=== PATIENT | male | born 1990 | race Caucasian/White ===

== ENCOUNTER → 2016-12-28 | Outpatient (CLI) | payer OTHER ==
[~2016-12-28] MED LIST: IBUP-103 PO; OXYC1TAB3 PO
[2016-12-28 17:36] LABS: BASO % 0.5 %; BASO ABS # 0.04 K/uL (0-0.2); COMPLETE YES; EOS % 1.5 %; HEMATOCRIT 46.3 % (42-52); IG% 0.1 %; LYMPH % 27.2 %; LYMPH ABS # 2.13 K/uL (1.2-3.4); MEAN CELL VOLUME 87.9 fL (80-100); MEAN CORPUSCULAR HEMOGLOBIN 30.9 pg (25-34); MEAN CORPUSCULAR HGB CONC 35.2 g/dl (32-36); MEAN PLATELET VOLUME 9.5 fL (7.4-10.4); MONO % 7.4 %; NEUT % 63.3 %; PLATELET COUNT 262 K/uL (130-400); RED BLOOD COUNT 5.27 M/uL (4.7-6.1); WHITE BLOOD COUNT 7.84 K/uL (4.8-10.8)
[2016-12-28 19:19] LABS: BLOOD UREA NITROGEN 14 mg/dl (7-18); BUN/CREATININE RATIO 17.4 (10-20); CARBON DIOXIDE 31 mmol/L (21-32); CHLORIDE 103 mmol/L (98-107); CREATININE 0.83 mg/dl (0.60-1.40); GLUCOSE 68 mg/dl (70-99); POTASSIUM 4.8 mmol/L (3.5-5.1); SODIUM 139 mmol/L (136-145)
[2016-12-28 19:23] LABS: LYME DISEASE AB IGG NEG (NEG); LYME DISEASE AB IGM NEG (NEG)
[2016-12-28 19:29] LABS: ALB/GLOB RATIO 1.1 (0.9-2); ALKALINE PHOSPHATASE 60 U/L (45-117); ALT/SGPT 46 U/L (12-78); AST/SGOT 16 U/L (15-37); THYROID STIMULATING HORMONE 0.498 uIu/ml (0.300-4.500)
[2016-12-28 22:10] LABS: HEPATITIS B AB POS
== END | disposition home or self-care (01) ==
LOC: C.LAB1850 17:09
PROVIDERS: ATTEND Internal Medicine
DX: R21 Rash and other nonspecific skin eruption (principal); M79.1 Myalgia; F41.8 Other specified anxiety disorders; F11.20 Opioid dependence, uncomplicated

== ENCOUNTER 2017-06-17 21:39 | Emergency (ER) | payer OTHER ==
[~2017-06-17] VITALS: Ht 175.3 cm; Wt 74.0 kg
[2017-06-17 21:43] VITALS: TEMP 36.6; Ht 175.3 cm; Wt 74.0 kg
[2017-06-17] MEDS ORDERED: ONDANSETRON INJ 2 MG/ML 2 ML VIAL IV STA (22:02)
[2017-06-17] MEDS ORDERED: MoRPHine SULFATE 4 MG/ML 1 ML CARP\\VIAL IV STA (22:02)
[2017-06-17] MEDS ORDERED: IBUP-103 PO (22:35)
--- NOTE | 2017-06-17 23:02 | DIAGNOSTIC IMAGING REPORT ---
LUMBAR SPINE WITHOUT CLINICAL HISTORY: 27 years-old Male presenting with fall 6 ft, severe LBP down left leg. TECHNIQUE: Multidetector CT of the lumbar spine was performed without the use of intravenous contrast. IV contrast: None. A dose lowering technique was used consistent with the principles of ALARA (as low as reasonably achievable). COMPARISON: Plain radiographs of the lumbar spine from 2009. CT DOSE (mGy.cm): The estimated cumulative dose is 578.14 mGy.cm. FINDINGS: Policy Change Clerk topogram: Unremarkable. Normal lumbar lordosis. No scoliosis. Vertebral bodies maintain normal height and alignment. Intervertebral disc heights maintained. No acute fracture or subluxation. Disc bulges noted at several levels, most severe at L4-5 and L5-S1. At L4-5, focal central disc protrusion mildly effaces the ventral thecal sac. Neural foramen also moderately narrowed at this level bilaterally. The disc bulge at L5-S1 results in mild right and moderate left neural foraminal narrowing. Paraspinal soft tissues within normal limits. IMPRESSION: 1. No acute osseous injury. 2. Focal disc bulges at L4-5 and L5-S1. Suggestion of a central disc protrusion at L4-5 that mildly narrows the spinal canal. Neural foraminal narrowing most severe at L4-5. Electronically signed by: Zackary Baez M.D. 06/17/2017 11:01 PM Dictated Date/Time: 06/17/2017 10:55 PM
[2017-06-17] MEDS ORDERED: OXYC1TAB3 PO ×2 (23:18→23:21)
[2017-06-17] MEDS ORDERED: OXYCODONE IR HOME PACK PO ONE ×2 (23:28→23:30)
[2017-06-17 23:36] VITALS: BP 139/81; PULSE 88; O2SAT 98
--- NOTE | 2017-06-18 04:19 | EMERGENCY ROOM VISIT NOTE ---
History First contact with patient: 21:55 Chief Complaint: BACK INJURY Stated Complaint: SEVERE BACK PAIN DUE TO WORK INJURY,WC History of Present Illness The patient is a 27 year old male who presents to the Emergency Room with complaints of back pain that raised his left leg after he fell at work. Patient was working on the top shelf at [employer] and the shelf floor fell through and he fell 6 feet onto the second shelf. Patient states he landed on his feet. He has a history of sciatica but this was well under control. Patient states after he fell this flared back up. Pain is currently 8 out of 10. Patient has tried icy hot with no relief of symptoms. Nothing makes it better or worse. Patient denies head injury, neck pain, loss of bowel or bladder control, saddle anesthesia, chest pain, dyspnea, abdominal pain, landing on his back, IV drug abuse. Patient states this is a work-related injury. Review of Systems See HPI for pertinent positives & negatives. A total of 10 systems reviewed and were otherwise negative. Past Medical/Surgical History Sciatica Social History Smoking Status: Current Every Day Smoker Drug Use: none Marital Status: in relationship Occupation Status: employed Current/Historical Medications Scheduled PRN Ibuprofen Tab (Advil), 400-600 MG PO Q6H PRN for Pain Oxycodone Immediate Rel Tab (Roxicodone Ir), 1-2 TAB PO Q4H PRN for Severe Pain Physical Exam Vital Signs Date Time Temp Pulse Resp B/P (MAP) Pulse Ox O2 Delivery O2 Flow Rate FiO2 06/17/17 23:36 88 20 139/81 98 06/17/17 21:43 36.6 85 20 149/85 99 Room Air Physical Exam PHYSICAL EXAM: VITALS: Vitals are noted on the nurse's note and reviewed by myself. Vital signs stable. GENERAL: White male who appears in pain, nondiaphoretic, well-developed well- nourished. SKIN: The skin was without obvious lacerations or abrasions. Capillary reflex less than 2 seconds. HEAD: Normocephalic atraumatic. EARS: External auditory canals clear, tympanic membranes pearly felder without erythema or effusion bilaterally. No hemotympanums. No santos sign. EYES: Pupils equal round and reactive to light and accommodation. Conjunctivae without injection, sclerae without icterus. Extraocular movements intact. . NOSE: Patent, turbinates without inflammation or discharge. MOUTH: Mucous membranes moist. Pharynx without erythema or exudate. Uvula midline. Airway patent. Tongue does not deviate. NECK: Supple without nuchal rigidity. Cervical spine is nontender. Full range of motion of the neck without tenderness. No JVD. HEART: Regular rate and rhythm without murmurs gallops or rubs. LUNGS: Clear to auscultation bilaterally without wheezes, rales or rhonchi. No dullness to percussion. No retractions or accessory muscle use. No chest wall tenderness. ABDOMEN: Positive bowel sounds x 4. Normal tympanic percussion. Soft, nontender, without masses or organomegaly. No guarding or rebound tenderness. MUSCULOSKELETAL: No tenderness of the thoracic spine. Lower lumbar spine slightly tender to palpation. No tenderness with pelvic rocking. Full range of motion without tenderness to palpation in all extremities. Normal gait. Strength 5/5 throughout. Negative straight leg raise. +2 patellar reflexes equal present bilaterally. NEURO: Patient was alert and oriented to person place and time. Normal sensation to light and sharp touch. Cerebellar function intact. No focal neurological deficits. Medical Decision & Procedures Medications Administered Medications (Trade) Dose Ordered Sig/Roxy Route Start Time Stop Time Status Last Admin Dose Admin Morphine Sulfate (MoRPHine SULFATE INJ) 4 mg NOW STAT IV 06/17/17 22:02 06/17/17 22:03 DC 06/17/17 22:16 4 MG Ondansetron HCl (Zofran Inj) 4 mg NOW STAT IV 06/17/17 22:02 06/17/17 22:03 DC 06/17/17 22:16 4 MG ED Course Prior records/ancillary studies reviewed. Triage Nursing notes reviewed. Additional history obtained from family The patient's history was concerning for back pain status post fall. Differential diagnosis: Etiologies such as musculoskeletal, disc herniation, fracture, aortic disease, metastatic disease, cord compression, discitis, infection, renal colic, gastrointestinal, acute exacerbation of chronic back pain, sciatica, cauda equina, as well as others were entertained. Physical findings: As above. No focal neurologic findings noted. ER treatment provided: Morphine, Zofran, home pack of OxyIR On reassessment the patient felt better. Diagnostics interpreted by me: Imaging studies: LUMBAR SPINE WITHOUT CLINICAL HISTORY: 27 years-old Male presenting with fall 6 ft, severe LBP down left leg. TECHNIQUE: Multidetector CT of the lumbar spine was performed without the use of intravenous contrast. IV contrast: None. A dose lowering technique was used consistent with the principles of ALARA (as low as reasonably achievable). COMPARISON: Plain radiographs of the lumbar spine from 2009. CT DOSE (mGy.cm): The estimated cumulative dose is 578.14 mGy.cm. FINDINGS: Insulation Cutter And Former topogram: Unremarkable. Normal lumbar lordosis. No scoliosis. Vertebral bodies maintain normal height and alignment. Intervertebral disc heights maintained. No acute fracture or subluxation. Disc bulges noted at several levels, most severe at L4-5 and L5-S1. At L4-5, focal central disc protrusion mildly effaces the ventral thecal sac. Neural foramen also moderately narrowed at this level bilaterally. The disc bulge at L5-S1 results in mild right and moderate left neural foraminal narrowing. Paraspinal soft tissues within normal limits. IMPRESSION: 1. No acute osseous injury. 2. Focal disc bulges at L4-5 and L5-S1. Suggestion of a central disc protrusion at L4-5 that mildly narrows the spinal canal. Neural foraminal narrowing most severe at L4-5. Electronically signed by: Zackary Baez M.D. This appears to be consistent with lumbar radiculopathy. Patient felt much better after being medicated as above. No fracture of CT imaging. He was neurovascularly and neurologically intact. He was advised to take medications as directed and to follow-up with family care or Worker's Comp. in a few days or here in the ER sooner for severe pain, inability to walk, loss of bowel or bladder control, worsening signs or symptoms or as needed. Patient did not have acute abdomen on exam. No other injuries are noted. Patient states the injury happened this morning at 10 AM and is now 10 PM at night. By the evaluation outlined above emergent etiologies such as fracture, aortic disease, metastatic disease, infection, renal colic, gastrointestinal, cord compression, cauda equina, as well as others were deemed relatively unlikely. The pt informed about the findings as listed above. All questions were answered and pleased with the treatment. Return instructions were outlined and the patient was discharged in stable condition. Outpatient prescription management: Oxy IR 5mg 1-2 po Q4 hrs prn Referral: The patient was referred back to Worker's Comp. and/or primary care physician for follow-up in 2 to 3 days for a recheck of the current condition. Medical Decision As above [place] Drug Monitoring Program Search Results: patient reviewed within database, no issues identified Medication Reconcilliation Current Medication List: was personally reviewed by me Blood Pressure Screening Patient's blood pressure: Normal blood pressure Impression Primary Impression: Lumbar radiculopathy Additional Impressions: Fall Back injury Work related injury Departure Information Dispostion Home / Self-Care Condition GOOD Prescriptions Oxycodone Immediate Rel Tab (ROXICODONE IR) 5 Mg Tab 1-2 TAB PO Q4H Y for Severe Pain, #15 TAB initial course Prov: Beatriz Monet ., FAUSTO 06/17/17 Forms HOME CARE DOCUMENTATION FORM, Work Instructions, Return To Work: 2 days IMPORTANT VISIT INFORMATION Patient Instructions [facility], ED Sciatica Additional Instructions DO NOT drive, drink alcohol, operate machinery, or perform dangerous activities today. You were given medications in the ER that can affect your ability to safely function or operate a vehicle. Oxycodone (OxyIR) 5mg: Take 1-2 pills every four hours for breakthrough pain. Avoid alcohol, operating machinery or dangerous equipment, working on ladders or roofs, DRIVING, or situations where being under the influence may be dangerous. It is recommended to use an goxv-ooi-anwtqir stool softener such as Colace, 100mg twice daily while taking this medication to avoid constipation. Ibuprofen(Motrin, Advil) may be used for fever or pain. Use 600mg every six hours as needed. Take with food. Avoid using more than 2400mg in a 24 hour period. Do not use 2400mg per day for more than three consecutive days without physician direction. Prolonged inappropriate use can lead to stomach upset or ulcers. This medication can be taken if you need to drive, work, or perform activities which may be dangerous when taking narcotic pain medication. (AND/OR) Acetaminophen(Tylenol) may be used for fever or pain. Use 1000mg every six hours as needed. Avoid using more than 3000mg in a 24 hour period. This medication can be taken if you need to drive, work, or perform activities which may be dangerous when taking narcotic pain medication. Rest and avoid heavy lifting until your symptoms resolve and then gradually return to full activity. A good rule of thumb is if it hurts your back to perform a certain activity, then it should be avoided until you are healthy again. A heating pad, warm compresses, or a hot shower may help with tight muscles and can be done several times a day as needed. Continue current medications. Return to the ER immediately for any numbness, tingling, severe pain, loss of control of your bowels or bladder, inability to walk, or as needed. Follow up with your primary care physician / wrokers comp within 3-5 days for a recheck of your current condition. Work Instructions Return To Work: 2 days Problem Qualifiers
== END 2017-06-17 23:36 | disposition home or self-care (01) ==
LOC: C.EDB 21:40 → C.EDC 23:36
DX: M54.16 Radiculopathy, lumbar region (principal); S39.92XA Unspecified injury of lower back, initial encounter; W17.89XA Other fall from one level to another, initial encounter; Y93.89 Activity, other specified; Y99.0 Civilian activity done for income or pay; Y92.89 Other specified places as the place of occurrence of the external cause; F17.200 Nicotine dependence, unspecified, uncomplicated

== ENCOUNTER → 2017-07-27 | Outpatient (CLI) | payer OTHER | END | disposition home or self-care (01) | LOC: C.LAB1850 16:54 | PROVIDERS: ATTEND Physician Assistant | DX: Z72.51 High risk heterosexual behavior (principal); Z20.2 Contact with and (suspected) exposure to infections with a predominantly sexual mode of transmission ==

== ENCOUNTER 2017-08-13 20:10 | Emergency (ER) | payer OTHER ==
[~2017-08-13] VITALS: Ht 175.3 cm; Wt 79.4 kg
[2017-08-13 20:14] VITALS: TEMP 36.9; Ht 175.3 cm; Wt 79.4 kg
[2017-08-13] MEDS ORDERED: IBUPROFEN 200 MG TAB PO STA (20:29)
[2017-08-13] MEDS ORDERED: CIPROFLOXACIN 500 MG TAB PO STA (20:29)
[2017-08-13] MEDS ORDERED: DIPHTHERIA/TETANUS/PERTUSSIS 0.5 ML SYR/VIAL IM. ONE (20:30)
[2017-08-13] MEDS ORDERED: GABA600T PO (20:52)
[2017-08-13] MEDS ORDERED: TADA5TAB11 PO (20:52)
[2017-08-13] MEDS ORDERED: CITA20TA9 PO (20:52)
--- NOTE | 2017-08-13 20:58 | DIAGNOSTIC IMAGING REPORT ---
R KNEE 3 VIEWS HISTORY: 27 years-old Male R knee pain/popping acute right knee pain without reported trauma COMPARISON: None available TECHNIQUE: 3 views of the right knee FINDINGS: No acute fracture, dislocation, significant degenerative changes or intra-articular loose body. Small joint effusion. No opaque foreign body. IMPRESSION: Small joint effusion without acute bony abnormality. The above report was generated using voice recognition software. It may contain grammatical, syntax or spelling errors. Electronically signed by: Willie Conley M.D. 08/13/2017 8:56 PM Dictated Date/Time: 08/13/2017 8:55 PM
--- NOTE | 2017-08-13 20:59 | DIAGNOSTIC IMAGING REPORT ---
L FOOT MIN 3 VIEWS ROUTINE HISTORY: 27 years-old Male puncture wound ball of L foot acute puncture wound of the left foot COMPARISON: None available TECHNIQUE: 3 views of the left foot FINDINGS: There is mild soft tissue swelling noted along the plantar surface of the foot at the level of the metatarsophalangeal joints. No acute fracture, dislocation or opaque foreign body. No stress fracture. IMPRESSION: Mild soft tissue swelling without fracture or opaque foreign body. The above report was generated using voice recognition software. It may contain grammatical, syntax or spelling errors. Electronically signed by: Willie Conley M.D. 08/13/2017 8:58 PM Dictated Date/Time: 08/13/2017 8:56 PM
[2017-08-13] MEDS ORDERED: CIPR-255 PO (21:19)
--- NOTE | 2017-08-13 21:31 | EMERGENCY ROOM VISIT NOTE ---
History First contact with patient: 20:19 Chief Complaint: FOOT PAIN Stated Complaint: MERCEDES NAIL, KNEE PROBLEM History of Present Illness The patient is a 27 year old male who presents to the Emergency Room with complaints of right knee pain for the last few days. The patient reports having a knee injury when he was very young. He has not had any problems since. He reports a popping and stiff sensation. No recent trauma. He has not taken anything for pain. He is able to bear weight on the leg. The patient also reports stepping on a mercedes nail earlier today with his left foot. It penetrated his shoe. He clean the area with soap and water. He is not up-to-date on his tetanus. Review of Systems 6 system review negative. Please see pertinent positives in the history of present illness section. Past Medical/Surgical History Otherwise healthy Social History Smoking Status: Current Every Day Smoker Drug Use: none Marital Status: in relationship Occupation Status: employed Current/Historical Medications Scheduled Citalopram Hydrobromide (Celexa), 20 MG PO DAILY Gabapentin (Neurontin), 600 MG PO QID Scheduled PRN Tadalafil (Cialis), 5 MG PO UD PRN for ED Physical Exam Vital Signs Date Time Temp Pulse Resp B/P (MAP) Pulse Ox O2 Delivery O2 Flow Rate FiO2 08/13/17 20:14 36.9 70 16 154/86 100 Room Air Physical Exam VITALS: Vitals are noted on the nurse's note and reviewed by myself. Vital signs stable. GENERAL: 19-year-old male, in no acute distress, nondiaphoretic, well-developed well-nourished. SKIN: One millimeter puncture wound noted to the ball of the left foot. No surrounding erythema. No foreign material noted. HEAD: Normocephalic atraumatic. MUSCULOSKELETAL: RIGHT KNEE: Full flexion and extension of the knee. Slight ligamentous laxity with posterior drawer. No pain with valgus and varus stress. No effusion or soft tissue swelling noted. NEURO: Patient was alert and oriented to person place and time. Normal sensation to touch. No focal neurological deficits. Medical Decision & Procedures ER Provider Diagnostic Interpretation: Knee x-ray Patient Name: TAHMINA ACOSTA Unit Number: [id number] Dictated: 08/13/172054 Transcribed: 08/13/172054 JRB Printed Date/Time: [~ rep prt dt]/[~ rep prt tm] [~ rep ct labl] - [~ rep ct ivnm] [facility] [place] [address] Dictated: 08/13/172054 Transcribed: 08/13/172054 JRB Printed Date/Time: [~ rep prt dt]/[~ rep prt tm] [~ rep ct labl] - [~ rep ct ivnm] IMPRESSION: Small joint effusion without acute bony abnormality. The above report was generated using voice recognition software. It may contain grammatical, syntax or spelling errors. Electronically signed by: Willie Conley M.D. 08/13/2017 8:56 PM Dictated Date/Time: 08/13/2017 8:55 PM The status of this report is Signed. Draft = Not yet reviewed or approved by Radiologist. Signed = Reviewed and approved by Radiologist. <AttendingPhy></AttendingPhy> <FamilyPhy>RV. Donahue MD</ FamilyPhy> <PrimaryPhy>RV. Donahue MD</PrimaryPhy> <UnitNumber> [id number]</UnitNumber> <VisitNumber>[id number]</VisitNumber> <PatientName> KARLAALDAIRDEVIKA Lilia</PatientName> <DateOfBirth>1990</DateOfBirth> <Location> [facility]</Location> <ServiceDate>08/13/17</ServiceDate> <MNE>ESINDI</MNE> < OrderingPhy>Bria Diallo PA-C</OrderingPhy> <OrderingPhyMNE>f rep ord dr riley< /OrderingPhyMNE> <DictatingPhyMNE>f rep dict dr riley</DictatingPhyMNE> <CCListMNE >f rep ct nuryse</CCListMNE> <AdmittingPhyMNE>f pt admit dr riley</AdmittingPhyMNE> < AttendingPhyMNE>f pt attend dr riley</AttendingPhyMNE> <ConsultingPhyMNE>f pt consult dr riley</ConsultingPhyMNE> <FamilyPhyMNE>f pt fam dr riley</FamilyPhyMNE> <OtherPhyMNE>f pt other dr riley</OtherPhyMNE> < PrimaryPhyMNE>f pt prim care dr riley</PrimaryPhyMNE> <ReferringPhyMNE>f pt referring dr riley</ReferringPhyMNE> Foot x-ray IMPRESSION: Mild soft tissue swelling without fracture or opaque foreign body. The above report was generated using voice recognition software. It may contain grammatical, syntax or spelling errors. Electronically signed by: Willie Conley M.D. 08/13/2017 8:58 PM Dictated Date/Time: 08/13/2017 8:56 PM The status of this report is Signed. Draft = Not yet reviewed or approved by Radiologist. Signed = Reviewed and approved by Radiologist. <AttendingPhy></AttendingPhy> <FamilyPhy>RV. Donahue MD</ FamilyPhy> <PrimaryPhy>RV. Donahue MD</PrimaryPhy> <UnitNumber> [id number]</UnitNumber> <VisitNumber>[id number]</VisitNumber> <PatientName> TAHMINA ACOSTA</PatientName> <DateOfBirth>1990</DateOfBirth> <Location> [facility]</Location> <ServiceDate>08/13/17</ServiceDate> <MNE>ESINDI</MNE> < OrderingPhy>Bria Diallo PA-C</OrderingPhy> <OrderingPhyMNE>f rep ord dr riley< /OrderingPhyMNE> <DictatingPhyMNE>f rep dict dr riley</DictatingPhyMNE> <CCListMNE >f rep ct nuryse</CCListMNE> <AdmittingPhyMNE>f pt admit dr riley</AdmittingPhyMNE> < AttendingPhyMNE>f pt attend dr riley</AttendingPhyMNE> <ConsultingPhyMNE>f pt consult dr riley</ConsultingPhyMNE> <FamilyPhyMNE>f pt fam dr riley</FamilyPhyMNE> <OtherPhyMNE>f pt other dr riley</OtherPhyMNE> < PrimaryPhyMNE>f pt prim care dr riley</PrimaryPhyMNE> <ReferringPhyMNE>f pt referring dr riley</ReferringPhyMNE> Medications Administered Medications (Trade) Dose Ordered Sig/Roxy Route Start Time Stop Time Status Last Admin Dose Admin Ibuprofen (Advil Tab) 800 mg NOW STAT PO 08/13/17 20:29 08/13/17 20:31 DC 08/13/17 20:47 800 MG Diphtheria/ Pertussis/Tetanus Vacc (Adacel Inj) 0.5 ml ONCE ONCE IM. 08/13/17 20:30 08/13/17 20:31 DC 08/13/17 20:51 0.5 ML Ciprofloxacin (Cipro Tab) 500 mg NOW STAT PO 08/13/17 20:29 08/13/17 20:31 DC 08/13/17 20:48 500 MG ED Course The patient was seen and examined He was given Motrin 800 mg for pain. He was given an Adacel injection Imaging was performed and reviewed The patient was also given 1 dose of ciprofloxacin 500 mg Discharge instruction were reviewed, and he was discharged in good condition Medical Decision Differential diagnosis: Contusion, ligamentous injury, effusion, fracture, dislocation, puncture wound, wound infection This patient is a 27-year-old male that presents to emergency department with complaints of right knee pain and a puncture wound to his left foot. The puncture wound did not appear infected. It was cleaned with Betadine and dressed. The patient was given an Adacel injection. He was also started on ciprofloxacin. Regarding his knee, the patient has slight ligamentous laxity with posterior drawer. Imaging was negative for fracture. He was given a knee immobilizer. She was instructed to take ibuprofen and apply ice. He was also instructed to use crutches for the next several days. If this did not improve, he'll follow up with his primary care physician and/or an orthopedic doctor. He was put on prophylactic antibiotics for the puncture wound, and was discharged in good condition Impression Primary Impression: Puncture wound Additional Impression: Right knee pain Departure Information Dispostion Home / Self-Care Condition GOOD Prescriptions Ciprofloxacin Hcl (CIPRO) 500 Mg Tab 500 MG PO BID, #14 TAB Prov: Bria Diallo, FAUSTO 08/13/17 Referrals LORIE Donahue., MD (PCP) Rustam Larry M.D. Forms HOME CARE DOCUMENTATION FORM, IMPORTANT VISIT INFORMATION Patient Instructions My [facility] Additional Instructions Please clean the wound on your foot daily with open water. Apply Neosporin to the wound and keep it bandaged for the first 3 days. Then, it is okay to keep it open to air. Please take Cipro 1 tab twice daily for 7 days For signs of infection such as increased redness, swelling, pain or fever. Wear the knee immobilizer and use crutches. Minimal weightbearing for the next several days. Please apply ice for 20 minute intervals and elevate the knee as much as possible Ibuprofen 600 mg every 6 hours as needed for pain If the pain in the knee does not improve, you may need to see your primary care physician or an orthopedic doctor in follow-up. Please return to the emergency department with a new, worsening or concerning symptoms Problem Qualifiers
[2017-08-13 22:06] VITALS: BP 130/71; PULSE 65; O2SAT 97
== END 2017-08-13 22:07 | disposition home or self-care (01) ==
LOC: C.EDB 20:12 → C.EDD 22:07
DX: S91.332A Puncture wound without foreign body, left foot, initial encounter (principal); W22.09XA Striking against other stationary object, initial encounter; Y92.9 Unspecified place or not applicable; M25.561 Pain in right knee; F17.210 Nicotine dependence, cigarettes, uncomplicated; Z79.899 Other long term (current) drug therapy

== ENCOUNTER → 2017-08-16 | Outpatient (CLI) | payer OTHER ==
[~2017-08-16] MED LIST changes: +CIPR-255 PO; +CITA20TA9 PO; +GABA600T PO; -IBUP-103 PO; -OXYC1TAB3 PO; +TADA5TAB11 PO
== END | disposition home or self-care (01) ==
LOC: C.LAB1850 10:38
PROVIDERS: ATTEND Emergency Medicine Emergency Medical Services
DX: F11.20 Opioid dependence, uncomplicated (principal)

== ENCOUNTER → 2018-01-19 | Outpatient (CLI) | payer OTHER ==
--- NOTE | 2018-01-19 19:40 | DIAGNOSTIC IMAGING REPORT ---
LEFT ANKLE 3 VIEWS HISTORY: Left ankle sprain. COMPARISON: None. FINDINGS: There is no fracture or dislocation. Lateral ankle swelling. No radiopaque foreign bodies. IMPRESSION: Lateral soft tissue swelling. No fractures within the left ankle. Electronically signed by: Jose Maria Rivera M.D. 01/19/2018 7:39 PM Dictated Date/Time: 01/19/2018 7:36 PM
== END | disposition home or self-care (01) ==
LOC: C.RAD 18:16
PROVIDERS: ATTEND Internal Medicine
DX: S93.402A Sprain of unspecified ligament of left ankle, initial encounter (principal); X58.XXXA Exposure to other specified factors, initial encounter

== ENCOUNTER → 2018-01-19 | Outpatient (CLI) | payer OTHER | END | disposition home or self-care (01) | LOC: C.CPL 06:40 | PROVIDERS: ATTEND Emergency Medicine Emergency Medical Services | DX: F11.20 Opioid dependence, uncomplicated (principal) ==

== ENCOUNTER → 2018-04-13 | Day surgery (SDC) | payer OTHER ==
[2018-03-30 15:04] VITALS: Ht 175.3 cm; Wt 81.8 kg
[~2018-04-13] VITALS: Ht 175.3 cm; Wt 81.8 kg
[~2018-04-13] MED LIST changes: -CIPR-255 PO; -CITA20TA9 PO; +IBUP-1050 PO; +LIDOCAINE HCL 2% 2 ML VIAL (20MG/ML) ONE; +METHADONE PO; +MIDAZOLAM HCL 1 MG/ML 2ML VIAL ONE; +PANT40TA PO; +PROPOFOL IV EMULSION 10 MG/ML 20 ML VIAL ONE; +SODIUM CHLORIDE 0.9% 500ML 500 ML IV ONE; +TADA10TA PO; -TADA5TAB11 PO
--- NOTE | 2018-04-13 10:16 | Endo History and Physical ---
History & Physical Date of Service: Apr 13, 2018. Chief Complaint: Abdominal pain Referring Physician: Dr. Govea History of Present Illness 28 yo CM who presents for EGD secondary to abdominal pain. Past Surgical History Hx Cardiac Surgery: No Hx Internal Defibrillator: No Hx Pacemaker: No Hx Abdominal Surgery: No Hx of Implantable Prosthesis: No Hx Post-Op Nausea and Vomiting: No Hx Cancer Surgery: No Hx Thoracic Surgery: No Hx Orthopedic: No Hx Urinary Tract Surgery: No Family History Colon CA, Polyp Social History Smoking Status: Current Every Day Smoker Hx Substance Use: Yes (METHADONE) Hx Alcohol Use: No Allergies Coded Allergies: No Known Allergies (Unverified , 03/30/18) Current Medications Reported Home Medications Medications Dose Route/Sig Max Daily Dose Days Date Category Dose Instructions Advil (Ibuprofen) 200 Mg Tab 600 Mg PO PRN 03/30/18 Reported [Methadone] 188 Mg PO QAM 03/30/18 Reported LIQUID Protonix (Pantoprazole Sodium) 40 Mg Tab 40 Mg PO QAM 03/30/18 Reported Cialis (Tadalafil) 10 Mg Tab 5 Mg PO UD 03/30/18 Reported Neurontin (Gabapentin) 600 Mg Tab 600 Mg PO QID 08/13/17 Reported Vital Signs Weight (Kilograms): 81.82 Height (Feet): 5 Height (Inches): 9 Physical Exam General Appearance: WD/WN, no apparent distress Respiratory/Chest: Auscultation: breath sounds normal Cardiovascular: Heart Auscultation: RRR Abdomen: Bowel Sounds: normal Inspection & Palpation: soft, non-distended, no tenderness, guarding & rebound Assessment and Plan Assessment: 28 yo CM who presents for EGD secondary to abdominal pain. Plan: Proceed with colonoscopy.
--- NOTE | 2018-04-13 11:38 | Discharge Instructions ---
Endoscopy Patient Instructions Date / Procedure(s) Performed Apr 13, 2018. EGD Allergy Information Coded Allergies: No Known Allergies (Unverified , 03/30/18) Discharge Date / Findings Apr 13, 2018. Gastritis s/p biopsies Reflux Esophagitis Medication Instructions OK to resume all medications today as prescribed Reported Home Medications Medications Dose Route/Sig Max Daily Dose Days Date Category Dose Instructions Advil (Ibuprofen) 200 Mg Tab 600 Mg PO PRN 03/30/18 Reported [Methadone] 188 Mg PO QAM 03/30/18 Reported LIQUID Protonix (Pantoprazole Sodium) 40 Mg Tab 40 Mg PO QAM 03/30/18 Reported Cialis (Tadalafil) 10 Mg Tab 5 Mg PO UD 03/30/18 Reported Neurontin (Gabapentin) 600 Mg Tab 600 Mg PO QID 08/13/17 Reported Provider Instructions Activity Restrictions - No exercising or heavy lifting for 24 hours. - Do not drink alcohol the day of the procedure. - Do not drive a car or operate machinery until the day after the procedure. - Do not make any important decisions or sign important papers in 24 hours after the procedure. Following Day: - Return to full activity which may include returning to work/school. Diet Start your diet with liquids and light foods (jello, soup, juice, toast). Then eat your usual diet if not nauseated. Treatment For Common After Affects For mild abdominal pain, bloating, or excessive gas: - Rest - Eat lightly - Lie on right side Follow-Up Information Follow-up with DR. AMIN as scheduled Anesthesia Information What You Should Know You have had a procedure that required some medicine to reduce anxiety and discomfort. This treatment is called moderate sedation. After receiving the treatment, you may be sleepy, but you will be able to breathe on your own. The effects of the treatment may last for several hours. Follow these instructions along with Activity/Diet recommendations noted above: * Do NOT do anything where dizziness or clumsiness would be dangerous. * Rest quietly at home today, then you can be up and about tomorrow. * Have a responsible person stay with you the rest of today. * You may have had an I.V. today. If so, you may take the dressing off later today. Recommendations Call your doctor if: * Trouble breathing * Continuous vomiting for more than 24 hours * Temperature above 101 degrees * Severe abdominal pain or bloating * Pain not relieved by pain medicine ordered * There is increased drainage or redness from any incision * A large amount of rectal bleeding greater than 2-3 tablespoons. (If you had a polyp/s removed or have hemorrhoids, a small amount of blood - from the rectum is to be expected.) * You have any unanswered questions or concerns. IN THE EVENT OF A SERIOUS EMERGENCY, GO TO THE NEAREST EMERGENCY ROOM Your discharge instructions were prepared by provider Mika Vidal. Patient Instructions Signature Page Vu Hernandez Patient (or Guardian) Signature/Date: I have read and understand the instructions given to me by my caregivers. Caregiver/RN/Doctor Signature/Date: The above-named patient and/or guardian has received patient instructions on this date. + Original Patient Signature Page (only) stays with chart. Please make copy for patient.
--- NOTE | 2018-04-13 11:41 | GI REPORT ---
Patient Name: Vu Hernandez Procedure Date: 04/13/2018 10:59 AM Date of : 1990 Admit Type: Outpatient Age: 28 Gender: Male Attending MD: Mika Vidal DO Procedure: Upper GI endoscopy Providers: Mika Vidal DO Referring MD: Sasha Valenzuela Indications: Generalized abdominal pain Medicines: Monitored Anesthesia Care Complications: No immediate complications. Estimated Blood Loss: Estimated blood loss: none. Procedure: Pre-Anesthesia Assessment: - Prior to the procedure, a History and Physical was performed, and patient medications and allergies were reviewed. The patient's tolerance of previous anesthesia was also reviewed. The risks and benefits of the procedure and the sedation options and risks were discussed with the patient. All questions were answered, and informed consent was obtained. Prior Anticoagulants: The patient has taken no previous anticoagulant or antiplatelet agents. ASA Grade Assessment: II - A patient with mild systemic disease. After reviewing the risks and benefits, the patient was deemed in satisfactory condition to undergo the procedure. After obtaining informed consent, the endoscope was passed under direct vision. Throughout the procedure, the patient's blood pressure, pulse, and oxygen saturations were monitored continuously. The scope was introduced through the mouth, and advanced to the second part of duodenum. The upper GI endoscopy was accomplished without difficulty. The patient tolerated the procedure well. Findings: LA Grade B (one or more mucosal breaks greater than 5 mm, not extending between the tops of two mucosal folds) esophagitis with no bleeding was found. Localized mild inflammation characterized by erythema was found in the gastric antrum. Biopsies were taken with a cold forceps for histology. The examined duodenum was normal. Impression: - LA Grade B reflux esophagitis. - Gastritis. Biopsied. - Normal examined duodenum. Recommendation: - Resume previous diet. - Continue present medications. - Await pathology results. - Return to primary care physician as previously scheduled. Mika Vidal DO 04/13/2018 11:41:23 AM This report has been signed electronically. Note Initiated On: 04/13/2018 10:59 AM Number of Addenda: 0 I attest to the content of the Intraoperative Record and orders documented therein, exceptions below {[id number]}
--- NOTE | 2018-04-13 12:13 | Anesthesiology Progress Note ---
Anesthesia Post Op Note Date & Time Apr 13, 2018 at 12:12 Vital Signs Pain Intensity: 4 Vital Signs Past 12 Hours Date Time Temp Pulse Resp B/P (MAP) Pulse Ox O2 Delivery O2 Flow Rate FiO2 04/13/18 12:08 75 16 117/63 (81) 95 Room Air 04/13/18 12:01 56 20 113/57 (75) 95 Room Air 04/13/18 11:48 63 20 109/52 (71) 97 Room Air 04/13/18 11:36 68 20 113/60 (77) 96 Room Air 04/13/18 10:12 37.1 84 20 139/77 (97) 94 Room Air Notes Mental Status: alert / awake / arousable, participated in evaluation Pt Amnestic to Procedure: Yes Nausea / Vomiting: adequately controlled Pain: adequately controlled Airway Patency, RR, SpO2: stable & adequate BP & HR: stable & adequate Hydration State: stable & adequate Anesthetic Complications: no major complications apparent
[2018-04-13 12:21] VITALS: BP 100/80; PULSE 65; O2SAT 94
== END | disposition home or self-care (01) ==
LOC: C.GI 09:52
PROVIDERS: ATTEND Internal Medicine
DX: R10.9 Unspecified abdominal pain (principal); K21.0 Gastro-esophageal reflux disease with esophagitis; K29.70 Gastritis, unspecified, without bleeding; Z80.0 Family history of malignant neoplasm of digestive organs; Z83.71 Family history of colonic polyps; F17.200 Nicotine dependence, unspecified, uncomplicated; Z86.19 Personal history of other infectious and parasitic diseases

== ENCOUNTER 2022-08-19 10:47 | Inpatient (IN) ==
--- NOTE | 2022-07-28 13:50 | PAT Medication Instructions ---
Medication Instructions Date of Service July 28, 2022 Home Medications Medication Instructions Recorded methocarbamol 500 mg tablet 500 mg PO TID PRN spasm #90 tabs 05/18/22 naproxen 500 mg tablet 500 mg PO BID #180 tabs 05/18/22 sildenafil (pulm.hypertension) 20 60 - 80 mg PO DAILY PRN sexual 06/01/22 mg tablet activity #60 tabs olopatadine 0.2 % eye drops 1 drp ophthalmic (eye) DAILY PRN 06/16/22 itching #2.5 mL triamcinolone acetonide 0.1 % 1 applic topical BID #30 grams 07/23/22 topical cream bupropion HCl 300 mg 24 hr tablet, 300 mg PO QAM #90 tabs 07/24/22 extended release (Wellbutrin XL) gabapentin 800 mg tablet 800 mg PO TID #90 tabs 07/24/22 methocarbamol 500 mg tablet 500 mg PO TID PRN spasm naproxen 500 mg tablet 500 mg PO BID sildenafil 20 mg tablet 60 - 80 mg PO DAILY PRN sexual activity olopatadine 0.2 % eye drops 1 drp ophthalmic (eye) DAILY PRN itching triamcinolone acetonide 0.1 % topical cream 1 applic topical BID bupropion HCl 300 mg 24 hr tablet, extended release (Wellbutrin XL) 300 mg PO QAM gabapentin 800 mg tablet 800 mg PO TID azelastine 137 mcg (0.1 %) nasal spray aerosol 2 spray intranasal DAILY PRN Allergy Symptoms montelukast 10 mg tablet (Singulair) 10 mg PO QPM PRN Allergy Symptoms pantoprazole 40 mg tablet,delayed release 40 mg PO QAM ASK your surgeon for instructions naproxen 500 mg tablet 500 mg PO BID STOP taking 24 hours before surgery triamcinolone acetonide 0.1 % topical cream 1 applic topical BID sildenafil 20 mg tablet 60 - 80 mg PO DAILY PRN sexual activity DO NOT take the morning of surgery methocarbamol 500 mg tablet 500 mg PO TID PRN spasm Take morning of surgery With a small sip of water, OTHERWISE NOTHING TO EAT OR DRINK AFTER MIDNIGHT: olopatadine 0.2 % eye drops 1 drp ophthalmic (eye) DAILY PRN itching (if needed) bupropion HCl 300 mg 24 hr tablet, extended release (Wellbutrin XL) 300 mg PO QAM gabapentin 800 mg tablet 800 mg PO TID azelastine 137 mcg (0.1 %) nasal spray aerosol 2 spray intranasal DAILY PRN Allergy Symptoms (if needed) pantoprazole 40 mg tablet,delayed release 40 mg PO QAM Take evening before surgery methocarbamol 500 mg tablet 500 mg PO TID PRN spasm (if needed) olopatadine 0.2 % eye drops 1 drp ophthalmic (eye) DAILY PRN itching (if needed) gabapentin 800 mg tablet 800 mg PO TID azelastine 137 mcg (0.1 %) nasal spray aerosol 2 spray intranasal DAILY PRN Allergy Symptoms (if needed) montelukast 10 mg tablet (Singulair) 10 mg PO QPM PRN Allergy Symptoms (if needed) Other Notes If you have any questions please call us at [phone] or [phone] or [phone] or [phone]
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
[~2022-08-19 10:47] MED LIST changes: +ACETAMINOPHEN 500 MG TAB PO SCH; +CeleBREX 200 MG CAP PO SCH; -GABA600T PO; +GABAPENTIN 900 MG DOSE PO SCH; -IBUP-1050 PO; -LIDOCAINE HCL 2% 2 ML VIAL (20MG/ML) ONE; +LR 15ML/HR IV SCH; -METHADONE PO; -MIDAZOLAM HCL 1 MG/ML 2ML VIAL ONE; -PANT40TA PO; -PROPOFOL IV EMULSION 10 MG/ML 20 ML VIAL ONE; -SODIUM CHLORIDE 0.9% 500ML 500 ML IV ONE; -TADA10TA PO; +ceFAZolin 2000MG 2,000 MG/15 ML SYR IV SCH
[2022-08-19] MEDS ORDERED: ePHEDrine sulfate 50 MG/ML AMP IV PRN (12:33)
[2022-08-19] MEDS ORDERED: ATROPINE SULFATE 0.1 MG/ML 10ML SYR IV PRN (12:33)
[2022-08-19] MEDS ORDERED: ONDANSETRON INJ 2 MG/ML 2 ML VIAL IV PRN ×2 (12:33→18:30)
--- NOTE | 2022-08-19 12:33 | History & Physical Bridge Note ---
Date of Service August 19, 2022 History & Physical Bridge Note I have examined the patient, reviewed the History & Physical and in the interval since the performance of the History & Physical I have noted the following changes of clinical significance: no changes noted
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
[2022-08-19] MEDS ORDERED: MIDAZOLAM HCL 1 MG/ML 2ML VIAL ONE (12:49)
[2022-08-19] MEDS ORDERED: LIDOCAINE 2% MPF LOCAL 5 ML VIAL INFIL ONE ×2 (12:49→12:50)
[2022-08-19] MEDS ORDERED: fentaNYL citrate 100 MCG/2 ML VIAL ONE (12:49)
[2022-08-19] MEDS ORDERED: PROPOFOL IV EMULSION 10 MG/ML 20 ML VIAL IV ONE (12:49)
[2022-08-19] MEDS ORDERED: ROCURONIUM BROMIDE 10 MG/ML 5 ML VIAL IV ONE ×6 (12:50→15:35)
[2022-08-19] MEDS ORDERED: BUPIVACAINE/EPINEPHRINE 0.25% 1:200,000 30 ML VIAL ONE (12:54)
[2022-08-19] MEDS ORDERED: ceFAZolin 330 MG/ML 1 GM VIAL ONE (12:54)
[2022-08-19] MEDS ORDERED: ePHEDrine sulfate 50 MG/ML AMP ONE (13:00)
[2022-08-19] MEDS ORDERED: PHENYLEPHRINE HCL 10 MG/ML VIAL ONE (13:01)
[2022-08-19] MEDS ORDERED: HYDROmorphone INJ 2 MG/ML SYR/VIAL ONE (13:44)
[2022-08-19] MEDS ORDERED: DEXAMETHASONE SOD INJ 4 MG/ML VIAL ONE ×2 (13:45)
[2022-08-19] MEDS ORDERED: FLOSEAL HEMOSTATIC MATRIX 10ML TOP ONE (14:25)
[2022-08-19] MEDS ORDERED: ONDANSETRON INJ 2 MG/ML 2 ML VIAL ONE (15:31)
--- NOTE | 2022-08-19 15:36 | Operative Report ---
Post Operative Report Pre & Post Diagnosis Operation Date: 08/19/22 12:25 Pre-Op Diagnosis: Neurogenic Claudication due to Lumbar Spinal Stenosis Post-Op Diagnosis: Neurogenic Claudication due to Lumbar Spinal Stenosis I identified the patient and participated in the time-out.: Yes Procedure Operation Date: 08/19/22 12:25 Actual Procedures p L4-S1 Decompression and Fusion, Spinal Cord Monitoring(Not Applicable) - Alex Castle DO Surgeon Alex Castle DO Customer Consultant Love Razo Estimated Blood Loss 450 Findings Consistent with Post-Op Diagnosis Specimens none Indications This is a 32-year-old male who presents with above-mentioned diagnosis after failed course of nonoperative care is here for surgical invention. Description of Procedure Patient was met with identified informed consent obtained. Patient was then taken to the operative suite underwent a patient placed in a prone position on the Jonathon table on top of the Rolando frame. All bony prominences well-padded eyes inspected to ensure no external pressure placed upon the. This point the lumbar spine was prepped and draped in normal sterile fashion. Sharp dissection with the assistance of Bovie cautery was performed down to and exposing the lamina transverse processes of L4-L5 and sacral ala bilaterally. From caudal to cephalad fashion complete laminectomy of L5 L4 and partial laminectomy of L3 was performed including bilateral medial facetectomies and foraminotomies addressing all spinal stenosis. Pedicle screws were then placed in L4-L5 and S1 levels bilaterally with assistance of fluoroscopy and the properly sized gaurav placed. By way of a transfemoral approach and left complete discectomy of L5-S1 was performed endplates curetted to subcortical bleeding bone and 11 x 26 mm spiral cage with I factor tapped in position. Then proceeded to L [address] of a transforaminal approach on the left complete discectomy performed endplates curetted to subcortical bleeding bone and a 13 x 26 mm spiral cage filled with I factor tapped in position. The rods then locked in final position bilaterally. The transverse processes of L4-L5 and sacral ala burred to subcortically bone. I factor combined with V toss and locally harvested morselized autograft was placed in the posterior gutters. 15 round BALJEET inserted. The incision was then closed with 1 Vicryl the fascia 2-0 Vicryl subcutaneously and 4 Monocryl for final skin closure. Steri-Strip sterile dressings placed. Patient awakened taken to PACU in stable condition. Please note spinal cord monitoring was utilized at the procedure no changes noted. Lastly Love Razo was present at the entire surgery and while the patient positioning complex portions of the surgery and final skin closure. I attest to the content of the Intraoperative Record and any orders documented therein. Any exceptions are noted below.
[2022-08-19] MEDS ORDERED: GLYCOPYRROLATE 0.2 MG/ML VIAL ONE ×2 (15:37→15:47)
--- NOTE | 2022-08-19 15:59 | Fluoroscopy Report ---
FL lumbar spine 2-3V CLINICAL HISTORY: L4-S1 Decompression/Fusion COMPARISON STUDY: None. FLUOROSCOPY TIME: 27 seconds. FINDINGS: 3 fluoroscopic spot images of the lumbar spine demonstrate posterior decompression and fusi on from L4 through S1 with pedicle screws and rods. The hardware appears intact. Disc spacers are in place. IMPRESSION: Fluoroscopic assistance provided for L4-S1 posterior decompression and fusion. ACT 112: Negative or not required by law. Electronically signed by: Jose Maria Rivera M.D. 08/19/2022 3:58 PM
[2022-08-19] MEDS: fentaNYL citrate 100 MCG/2 ML VIAL IV PRN ×4 (16:05→16:20)
[2022-08-19] MEDS: HYDROmorphone INJ 1 MG/ML SYRINGE IV PRN ×4 (16:41→22:04)
--- NOTE | 2022-08-19 17:09 | Anesthesiology Progress Note ---
Date of Service August 19, 2022 Anesthesia Post Procedure Vital Signs Vital Signs: Temp Pulse Resp BP Pulse Ox O2 Del Method O2 Flow Rate 08/19/22 16:55 82 12 132/78 99 Nasal Cannula 2 08/19/22 16:45 36.4 C L 79 32 H 144/87 H 100 Nasal Cannula 2 08/19/22 16:35 86 15 139/84 100 Nasal Cannula 2 08/19/22 16:15 93 H 23 147/88 H 97 Room Air 08/19/22 16:05 89 19 148/96 H 96 Room Air 08/19/22 16:25 86 18 146/88 H 100 Nasal Cannula 2 08/19/22 15:56 36.4 C L 83 12 121/74 99 Room Air 08/19/22 11:14 36.9 C 73 20 145/89 H 100 Room Air Pain Intensity Lower Back: Pain Intensity: 4 Transfer of Care Handoff Completed per policy Notes Mental Status: alert / awake / arousable Patient Amnestic to Procedure: Yes Nausea / Vomiting: adequately controlled Pain: adequately controlled Airway Patency, RR, SpO2: stable & adequate BP & HR: stable & adequate Hydration State: stable & adequate Anesthetic Complications: no major complications apparent
[2022-08-19] MEDS ORDERED: ACETAMINOPHEN 1,000 MG/100 ML VIAL IV PRN (18:30)
[2022-08-19] MEDS ORDERED: PROMETHAZINE HCL 12.5 MG in SODIUM CHLORIDE 0.9% 50 ML IV PRN (18:30)
[2022-08-19] MEDS ORDERED: ALUMINUM/MAGNESIUM SUSP 30 ML UDC PO PRN (18:30)
[2022-08-19] MEDS ORDERED: HYDROmorphone INJ 0.5 MG/0.5 ML SYR IV PRN (18:30)
[2022-08-19] MEDS ORDERED: DO NOT ADMINISTER FLU VACCINE PRN (18:30)
[2022-08-19] MEDS ORDERED: traMADol HCL 50 MG TABLET PO PRN (18:30)
[2022-08-19] MEDS ORDERED: SOD PHOSPHATE/SOD BIPHOSPHATE ENEMA 132 ML BTL PR PRN (18:30)
[2022-08-19] MEDS ORDERED: bisacodyL 10 MG SUPP PR PRN (18:30)
[2022-08-19] MEDS ORDERED: MONTELUKAST SODIUM 10 MG TABLET PO PRN (18:30)
[2022-08-19] MEDS ORDERED: MAGNESIUM HYDROXIDE SUSP 30 ML UDC PO PRN (18:30)
[2022-08-19] MEDS ORDERED: FAMOTIDINE 20 MG TAB PO PRN (18:30)
[2022-08-19] MEDS ORDERED: hydrOXYzine HCl 25 MG TAB PO PRN (18:30)
[2022-08-19] MEDS ORDERED: DO NOT ADMINISTER PNEUMOCOCCAL VACCINE PRN (18:30)
[2022-08-19] MEDS: LACTATED RINGER'S 1,000 ML IV SCH (18:30)
[2022-08-19] MEDS ORDERED: METOCLOPRAMIDE HCL INJ 5 MG/ML 2 ML VIAL IV PRN (18:30)
[2022-08-19] MEDS ORDERED: NALOXONE HCL 0.4 MG/1 ML VIAL/CARP IV PRN (18:30)
[2022-08-19] MEDS ORDERED: ONDANSETRON 4 MG OD TAB PO PRN (18:30)
[2022-08-19] MEDS ORDERED: LORazepam 0.5 MG in SYRINGE 0 ML IV PRN (18:30)
[2022-08-19] MEDS: DOCUSATE SODIUM/SENNA 50/8.6MG TAB PO SCH (20:48)
[2022-08-19] MEDS: GABAPENTIN 800 MG TAB PO SCH (20:48)
[2022-08-19] MEDS: oxyCODONE HCL IR 5 MG TAB (IMMEDIATE RELEASE) PO PRN (22:22)
[2022-08-19] MEDS: ACETAMINOPHEN 500 MG TAB PO PRN (22:22)
[2022-08-19] MEDS: ceFAZolin 2000MG 2,000 MG/15 ML SYR IV SCH (22:27)
[2022-08-19] MEDS: diphenhydrAMINE Capsule 25 MG CAP PO PRN (22:31)
[2022-08-20] MEDS: LACTATED RINGER'S 1,000 ML IV SCH (00:29)
[2022-08-20] MEDS: oxyCODONE HCL IR 5 MG TAB (IMMEDIATE RELEASE) PO PRN ×3 (02:57→17:09)
[2022-08-20] MEDS: ceFAZolin 2000MG 2,000 MG/15 ML SYR IV SCH (06:18)
[2022-08-20] MEDS: HYDROmorphone INJ 1 MG/ML SYRINGE IV PRN ×2 (06:20→20:41)
[2022-08-20] MEDS: POLYETHYLENE (MIRALAX) 17 GM PACK PO SCH ×4 (06:21→23:23)
[2022-08-20 06:30] LABS: Basophils # (auto) 0.01 K/uL (0-0.2); Basophils % (auto) 0.1 %; Hematocrit (blood only) 36.3 % (40.1-51.0); Hemoglobin 12.9 g/dl (14.0-18.0); Immature Granulocytes # (auto) 0.09 K/uL (0.00-0.02); Immature Granulocytes % (auto) 0.6 %; Lymphocytes # (auto) 1.47 K/uL (1.2-3.4); Lymphocytes % (auto) 10.1 %; Mean Corpuscular Hemoglobin 30.6 pg (25.0-34.0); Mean Corpuscular Hgb Conc 35.5 g/dL (32.0-36.0); Mean Platelet Volume 9.1 fL (9.4-12.4); Monocytes # (auto) 1.01 K/uL (0.24-0.82); Neutrophils # (auto) 11.91 K/uL (1.4-6.5); Neutrophils % (auto) 82.2 %; Platelet Count 244 K/uL (130-400); RDW Coefficient of Variation 12.7 % (11.5-14.5); RDW Standard Deviation 39.5 fL (36.4-46.3); Red Blood Count 4.22 M/uL (4.63-6.08); White Blood Count 14.49 K/ul (4.8-10.8)
[2022-08-20 07:16] LABS: BUN Creatinine Ratio 16.1 (10-20); Calcium 8.7 mg/dl (8.5-10.1); Creatinine Clr Calc Pharmacy 116.7 ml/min; Est GFR (African American) 124.6 ml/min; Est GFR (Non-African American) 107.5 ml/min; Potassium 4.1 mmol/L (3.5-5.1)
[2022-08-20] MEDS: PANTOprazole 40 MG TAB PO SCH (08:31)
[2022-08-20] MEDS: ACETAMINOPHEN 500 MG TAB PO PRN ×2 (08:31→17:10)
[2022-08-20] MEDS: METHOCARBAMOL 500 MG TABLET PO PRN ×2 (08:31→17:12)
[2022-08-20] MEDS: dexAMETHasone 6 MG in SYRINGE 0 ML IV SCH (08:32)
[2022-08-20] MEDS: buPROPion XL 300 MG TABCR PO SCH (08:32)
[2022-08-20] MEDS: GABAPENTIN 800 MG TAB PO SCH ×3 (08:32→20:35)
[2022-08-20] MEDS ORDERED: KETOROLAC 30 MG/ML VIAL IV ONE (10:50)
--- NOTE | 2022-08-20 10:52 | Orthopedic Progress Note ---
Date of Service August 20, 2022 Assessment & Plan (1) Neurogenic claudication due to lumbar spinal stenosis: Plan: At this time we will continue pain management. We will initiate physical therapy. MARCUS his Dmitry today. Admission and Anticipated Discharge Date Admission Date: August 19, 2022 Subjective Patient having significant back pain no leg pain Physical Exam Physical Exam: Patient is in obvious distress. Sitting up at the side of the bed. Good strength testing. Results & Data ([facility]) Vital Signs (Past 12 Hours) Vital Signs Temp Pulse Resp BP Pulse Ox O2 Del Method 08/20/22 07:22 36.3 C L 68 16 106/65 98 Room Air 08/20/22 02:53 36.8 C 80 16 118/66 96 Room Air
[2022-08-20] MEDS ORDERED: KETOROLAC 30 MG/ML VIAL IV PRN (17:00)
[2022-08-20] MEDS: DOCUSATE SODIUM/SENNA 50/8.6MG TAB PO SCH (20:35)
[2022-08-20] MEDS: LORazepam 0.5 MG TAB PO PRN (22:49)
[2022-08-21] MEDS: oxyCODONE HCL IR 5 MG TAB (IMMEDIATE RELEASE) PO PRN (05:48)
[2022-08-21] MEDS: POLYETHYLENE (MIRALAX) 17 GM PACK PO SCH ×4 (05:50→20:58)
[2022-08-21] MEDS: ACETAMINOPHEN 500 MG TAB PO PRN (07:08)
[2022-08-21] MEDS: METHOCARBAMOL 500 MG TABLET PO PRN (07:09)
[2022-08-21] MEDS: dexAMETHasone 6 MG in SYRINGE 0 ML IV SCH (08:10)
[2022-08-21] MEDS: buPROPion XL 300 MG TABCR PO SCH (08:10)
[2022-08-21] MEDS: GABAPENTIN 800 MG TAB PO SCH ×3 (08:10→20:59)
[2022-08-21] MEDS: PANTOprazole 40 MG TAB PO SCH (08:10)
[2022-08-21] MEDS: HYDROmorphone HCL 2 MG TAB PO PRN ×3 (11:05→20:58)
--- NOTE | 2022-08-21 12:29 | Orthopedic Progress Note ---
Date of Service August 21, 2022 Assessment & Plan (1) Neurogenic claudication due to lumbar spinal stenosis: Plan: This time we will continue physical therapy monitor his BALJEET operatively discharge over the next day or so. Admission and Anticipated Discharge Date Admission Date: August 19, 2022 Subjective Patient still struggling with significant amount of back pain. Leg pain is improved. Physical Exam Physical Exam: Patient is in bed. Is good strength testing. Results & Data ([facility]) Vital Signs (Past 12 Hours) Vital Signs Temp Pulse Resp BP Pulse Ox O2 Del Method 08/21/22 07:28 36.8 C 76 18 148/76 H 98 Room Air
[2022-08-21] MEDS: DOCUSATE SODIUM/SENNA 50/8.6MG TAB PO SCH (20:58)
[2022-08-21] MEDS: LORazepam 0.5 MG TAB PO PRN (20:58)
[2022-08-22] MEDS: diphenhydrAMINE Capsule 25 MG CAP PO PRN (02:21)
[2022-08-22] MEDS: HYDROmorphone HCL 2 MG TAB PO PRN (02:21)
[2022-08-22] MEDS: POLYETHYLENE (MIRALAX) 17 GM PACK PO SCH (06:33)
[2022-08-22] MEDS: GABAPENTIN 800 MG TAB PO SCH (08:27)
[2022-08-22] MEDS: PANTOprazole 40 MG TAB PO SCH (08:27)
[2022-08-22] MEDS: dexAMETHasone 6 MG in SYRINGE 0 ML IV SCH (08:27)
[2022-08-22] MEDS: buPROPion XL 300 MG TABCR PO SCH (08:27)
[2022-08-22] MEDS: ACETAMINOPHEN 500 MG TAB PO PRN (08:35)
--- NOTE | 2022-08-22 10:43 | Discharge Summary ---
Date of Service August 22, 2022 Admission HPI Per Admitting Provider This is a 32-year-old male who presents with chronic persistent back and leg pain after failing such course of nonoperative care is here for surgical intervention. Principal Diagnosis Lumbar spinal stenosis with neurogenic claudication Discharge Data Allergies Allergy/AdvReac Type Severity Reaction Status Date / Time No Known Allergies Allergy Verified 08/19/22 11:21 Procedures Performed Operation Date: 08/19/22 12:25 Actual Procedures p L4-S1 Decompression and Fusion, Spinal Cord Monitoring(Not Applicable) - Alex Castle DO Ordered Studies 08/19/22 [place] lumbar spine 2-3V Routine Hospital Course (1) Neurogenic claudication due to lumbar spinal stenosis: Patient with lumbar depression fusion tolerates well stable orthopedic for postoperative. Postop plan mornings up and ambulating progress postop day 2 on postop day #3 pain was better controlled leg pain improved BALJEET drain decreased appropriately. Excellent strength testing. Separately discharged home. Discharge orders instructions found in chart for further review. Total Time Total Time Spent Total Time Spent (In Minutes): 20 minutes Discharge Plan Discharge Items Patient Disposition: Home - Self-Care Reason For Visit: Radiculopathy, Lumbar Legion Discharge Diagnosis: Lumbar stenosis with radiculopathy Activity: As commented below Non-emergency contact: Primary Care Provider Call non-emergency contact if: you have any medication questions Follow-up/Referrals: Zaida Fall MD [Primary Care Provider] - Diet: Regular Addtl Attending Provider Instructions: ACTIVITY RECOMMENDATIONS: SELF CARE INSTRUCTIONS AFTER THORACIC/LUMBAR FUSIONS 1. You may walk to your tolerance. It is good exercise for your legs and back. Expect some back and intermittent leg aches and pains. 2. You may perform "counter-top" level activities (make a sandwich, trevor with a project, etc.). 3. No bending or lifting of more than 10 pounds or back twisting of any nature (roll like a log when turning in bed). 4. You may ride in a car for 20-30 minutes at a time. No driving until after your first visit with your doctor. 5. Frequent changes of position and restricting sitting to 30 minutes at a time will help limit the amount of back spasms and stiffness you may experience. 6. You may discontinue the use of ambulatory aids (cane, crutches, etc.) once your strength and confidence allow. 7. You may engineering technician parking the shower and let water strike your incision when you arrive home at least once daily. Do not take a tub bath, sit in a hot tub or go into a swimming pool until after your first recheck in the office. SPECIAL CARE INSTRUCTIONS: VERY IMPORTANT TO READ AND REVIEW A. Your surgical incision has been closed with a cosmetic suture under the skin that will dissolve in about 6 weeks. In 14 days, you can use a pair of clean scissors and cut the suture that is left outside of the skin at the ends of your incision. 1. The small skin tapes can be removed 7 days after surgery if they have not fallen off by that point. 2. You may keep the wound open to air as much as possible to promote healing after post-op day number 5 unless told otherwise by your doctor. 3. If you think the wound looks like it is becoming infected (redness or worsening drainage) and/or you are experiencing fever, chill or worsening back pain and muscle spasms, contact the office so that we may evaluate you as soon as possible. B. Complications are uncommon, but please contact us if you have any signs or symptoms of: 1. wound infection (fever higher than 102.5 degrees F, redness, separation of wound, drainage, or increasing pain from the incision) 2. blood clots in legs (pain, swelling, redness and warmth in legs) 3. urinary tract infection (fever higher than 102.5 degrees F, burning upon urination or increased frequency of urination) 4. nerve problems (inability to walk on your toes or heels, numbness, loss of bowel or bladder control) 5. any other symptoms that concern you C. Please call the office at if you have any concerns or questions about your operation or recovery. D. No smoking! Smoking drastically decreases the chance of a solid fusion. E. Do not take any anti-inflammatory medications (Indocin, Advil, Motrin, Aspirin, Naprosyn, etc.) as these may inhibit the chance of a solid fusion. Tylenol is okay to take for pain. MANAGING PAIN AFTER SPINAL SURGERY 1. Narcotic medication is intended for short-term use and will be provided for surgical pain. Surgical pain usually lasts for a period of 4-6 weeks. Narcotic medication includes Percocet, Vicodin, Darvocet, Tylenol #3 or Lortab. 2. Longer-term pain is more appropriately treated with non-narcotic medication such as Tylenol ES. 3. Muscle spasm is not appropriately treated with narcotics. Muscle relaxers such as Soma, Flexeril or Skelaxin can be used along with Tylenol ES. 4. Remember that we all live with some "aches and pains". This is not unusual or uncommon after an injury or as we get older. a. Back pain is expected and may include muscle spasms for 4 to 6 weeks after surgery. The pain should gradually improve. If the pain worsens for no apparent reason, please contact the office. b. Intermittent leg pain may also be experienced and should not be concerned about unless it worsens for no apparent reason. If so, please contact the office. 5. We will provide appropriate medication within the normal guidelines of their prescribed use. We will also be very cautious and aware of potential abuse and extended duration of patients' medication needs. a. Pain medications are for your comfort and to assist with sleep and rest so that the tissue can heal. They are not provided in order to return to normal activity and should not be used through the day. To do so or worsening pain at night can result from ongoing tissue damage and development of tolerance to the prescribed medicine. 6. Please allow 2-3 days to process refills. Prescriptions will not be mailed but must be picked up at the office. FOLLOW UP VISIT: Keep your scheduled follow-up appointment. Any questions, please call the office at . Pending Studies at Discharge: No Stand-Alone Forms: My [facility], Smoking Cessation Medications and [place] Order Prescriptions: New tramadol 50 mg tablet 50 mg PO Q6H PRN (Reason: pain, moderate) Qty: 30 0RF hydromorphone [Dilaudid] 2 mg Tablet 2 mg PO Q4 PRN (Reason: pain) Qty: 30 0RF Continued bupropion HCl [Wellbutrin XL] 300 mg tablet extended release 24 hr 300 mg PO QAM Qty: 90 1RF gabapentin 800 mg tablet 800 mg PO TID Qty: 90 5RF sildenafil (pulm.hypertension) 20 mg tablet 60 - 80 mg PO DAILY PRN (Reason: sexual activity) Qty: 60 3RF olopatadine 0.2 % drops 1 drp ophthalmic (eye) DAILY PRN (Reason: itching) Qty: 2.5 11RF naproxen 500 mg tablet 500 mg PO BID Qty: 180 2RF methocarbamol 500 mg tablet 500 mg PO TID PRN (Reason: spasm) Qty: 90 0RF triamcinolone acetonide 0.1 % cream 1 applic topical BID Qty: 60 1RF Rx Instructions: Apply to arms and legs/affected areas twice a day for up to 2 weeks pantoprazole 40 mg tablet,delayed release (DR/EC) 40 mg PO QAM montelukast [Singulair] 10 mg tablet 10 mg PO QPM PRN (Reason: Allergy Symptoms) azelastine 137 mcg (0.1 %) aerosol,spray 2 spray intranasal DAILY PRN (Reason: Allergy Symptoms) Discharge Orders: Discharge Order (Routine); Ordered 08/22/22 Ordered By: Alex Castle Admission Data Admit Date/Time: 08/19/22 15:48 Attending Provider: Alex Castle Admit Provider: Alex Castle Primary Care Provider: Zaida Fall V.
== END 2022-08-22 11:21 | disposition home or self-care (01) | DRG 460 ==
LOC: ASU 10:47 → PACUINP 15:48 → 3E 18:30